=== PATIENT | female | born 1945 | race Caucasian/White ===

== ENCOUNTER 2018-10-28 07:08 | Emergency (ER) | payer MEDICARE ==
[~2018-10-28] VITALS: Ht 162.6 cm; Wt 73.7 kg
[2018-10-28] MEDS ORDERED: HYDR500C18 PO (07:33)
[2018-10-28] MEDS ORDERED: ASPI-1265 PO (07:34)
[2018-10-28] MEDS ORDERED: TRAM50TA2 PO (08:36)
[2018-10-28] MEDS ORDERED: ONDA4TAB6 PO (08:36)
[2018-10-28 09:06] VITALS: BP 138/84
== END 2018-10-28 09:08 | disposition home or self-care (01) ==
LOC: ER 07:09
DX: S42.292A Other displaced fracture of upper end of left humerus, initial encounter for closed fracture (principal); S42.212A Unspecified displaced fracture of surgical neck of left humerus, initial encounter for closed fracture; Z98.890 Other specified postprocedural states; Z79.82 Long term (current) use of aspirin; W19.XXXA Unspecified fall, initial encounter; Y93.01 Activity, walking, marching and hiking; Y92.89 Other specified places as the place of occurrence of the external cause; Y99.9 Unspecified external cause status
CPT/HCPCS: 29105; 73030; 99284

== ENCOUNTER 2021-01-01 20:18 | Emergency (ER) | payer MEDICARE ==
[~2021-01-01] VITALS: Ht 160 cm; Wt 72.1 kg
[~2021-01-01 20:18] MED LIST: ASPI-1265 PO; HYDR500C18 PO; ONDA4TAB6 PO
[2021-01-01 21:29] LABS: CLARITY,URINE CLOUDY (Clear); COLOR,URINE YELLOW (Yellow); GLUCOSE, URINE NEGATIVE (Neg); KETONES,URINE NEGATIVE (Neg); LEUKOCYTE ESTERASE ,URINE LARGE (Neg); NITRITES, URINE NEGATIVE (Neg); OCCULT BLOOD,URINE LARGE (Neg); PROTEIN,URINE NEGATIVE (Neg); UROBILINOGEN,URINE 0.2 E.U/dL (0.2-1.0)
[2021-01-01 21:30] LABS: UA COLLECTION TYPE CLN CATCH MIDSTREAM
[2021-01-01 21:37] LABS: WBC,URINE TNTC /HPF (0-4)
[2021-01-01 21:38] LABS: MUCUS STRANDS FEW /LPF (Neg); SQUAMOUS EPITHELIAL CELL,UR MANY /LPF (FEW); TRANSITIONAL EPI CELLS,URINE FEW /HPF
[2021-01-01 21:39] LABS: BACTERIA,URINE 2+ /HPF (Neg)
[2021-01-01 21:40] LABS: RBC,URINE 50-100 /HPF (0-2)
[2021-01-01] MEDS ORDERED: PHEN-716 PO (22:09)
[2021-01-01] MEDS ORDERED: CEPH-585 PO (22:09)
[2021-01-01] MEDS ORDERED: phenazopyridine 100mg tablet PO ONE (22:10)
[2021-01-01] MEDS ORDERED: cephalexin 250mg capsule PO ONE (22:10)
[2021-01-01 22:35] VITALS: BP 144/81
[2021-01-01 22:44] LABS: CLARITY,URINE CLOUDY (Clear); COLOR,URINE YELLOW (Yellow); GLUCOSE, URINE NEGATIVE (Neg); KETONES,URINE NEGATIVE (Neg); LEUKOCYTE ESTERASE ,URINE LARGE (Neg); NITRITES, URINE NEGATIVE (Neg); OCCULT BLOOD,URINE LARGE (Neg); PROTEIN,URINE NEGATIVE (Neg); UROBILINOGEN,URINE 0.2 E.U/dL (0.2-1.0)
[2021-01-01 22:45] LABS: UA COLLECTION TYPE CLN CATCH MIDSTREAM
[2021-01-01 23:00] LABS: WBC,URINE TNTC /HPF (0-4)
[2021-01-01 23:02] LABS: BACTERIA,URINE 2+ /HPF (Neg)
[2021-01-01 23:04] LABS: RBC,URINE 50-100 /HPF (0-2); SQUAMOUS EPITHELIAL CELL,UR MODERATE /LPF (FEW)
[2021-01-01 23:05] LABS: HYALINE CASTS 0-3 /LPF (NEGATIVE); MUCUS STRANDS FEW /LPF (Neg); TRANSITIONAL EPI CELLS,URINE FEW /HPF; WBC CLUMPS,URINE MODERATE /HPF (NEGATIVE)
== END 2021-01-01 22:36 | disposition home or self-care (01) ==
LOC: ER 20:19
DX: N39.0 Urinary tract infection, site not specified (principal); R30.0 Dysuria; Z79.82 Long term (current) use of aspirin; Z79.2 Long term (current) use of antibiotics; Z79.899 Other long term (current) drug therapy; Z85.9 Personal history of malignant neoplasm, unspecified; Z98.890 Other specified postprocedural states
CPT/HCPCS: 81001; 87077; 87088; 87186; 99283